=== PATIENT | male | born 1990 | race Caucasian/White ===

== ENCOUNTER 2019-02-11 19:07 | Emergency (ER) | payer BC, MEDICAID ==
[~2019-02-11] VITALS: Ht 177.8 cm; Wt 113.8 kg
[~2019-02-11 19:07] MED LIST: HYDR-843 PO
[2019-02-11 19:10] VITALS: Ht 177.8 cm; Wt 113.8 kg
[2019-02-11] MEDS ORDERED: LORAZEPAM 1 MG TAB PO ONE (21:30)
[2019-02-11 21:34] VITALS: BP 111/77; PULSE 80; RESP 18
--- NOTE | 2019-02-11 21:39 | ERD ---
ER Documentation Chief Complaint Chief Complaint SOB WITH CP; NO COUGHING; STATES FELT DIZZY WHILE DRIVING 1HR AGO HPI This is a 28-year-old male with past medical history of asthma is presenting to the emergency department complaining of an episode of shortness of breath which he experienced just prior to arrival while driving. 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 He has also had some tingling in his right arm and dizziness. Overall, he has improved. He took no medication for relief of symptoms. He denies any recent travel, recent surgery, past history of DVT or PE, hormone use, or hemoptysis. He adamantly denies any homicidal or suicidal ideation. No other symptoms reported at this time. ROS All systems reviewed and are negative except as per history of present illness. Medications Home Meds Active Scripts Hydroxyzine Hcl* (Hydroxyzine Hcl*) 25 Mg Tablet, 25 MG PO Q8H PRN for ANXIETY, #30 TAB Prov:RACHNA POP PA-C 02/11/19 Allergies Allergies: Coded Allergies: No Known Drug Allergies (Verified Allergy, Mild, 03/11/18) PMhx/Soc Medical and Surgical Hx: pt denies Surgical Hx History of Surgery: No Anesthesia Reaction: No Hx Neurological Disorder: Yes (MIGRAINES) Hx Respiratory Disorders: Yes (asthma) Hx Cardiac Disorders: No Hx Psychiatric Problems: No Hx Miscellaneous Medical Probl: No Hx Alcohol Use: No Hx Substance Use: No Hx Tobacco Use: No Smoking Status: Current every day smoker FmHx Family History: No diabetes Physical Exam Vitals Vital Signs Date Temp Pulse Resp B/P (MAP) Pulse Ox O2 O2 Flow FiO2 Time Delivery Rate 02/11/19 97.6 80 18 111/77 97 Room Air 21:34 (88) 02/11/19 98.1 104 19 128/91 98 19:10 (103) Physical Exam Const: No acute distress Head: Atraumatic Eyes: Normal Conjunctiva ENT: Normal External Ears, Nose and Mouth. Neck: Full range of motion. No meningismus. Resp: Clear to auscultation bilaterally Cardio: Regular rate and rhythm, no murmurs Abd: Soft, non tender, non distended. Normal bowel sounds Skin: No petechiae or rashes Back: No midline or flank tenderness Ext: No cyanosis, or edema Neur: Awake and alert Psych: anxious. Adamantly denies homicidal or suicidal ideation. Results 24 hrs Current Medications Medications Dose Sig/Jaxon Start Time Status Last (Trade) Ordered Route PRN Stop Time Admin Dose Reason Admin Lorazepam 1 mg ONCE ONCE 02/11/19 DC 02/11/19 (Ativan) PO 21:30 21:33 02/11/19 21:31 Procedures/MDM 28-year-old male presenting to the emergency department complaining of intermittent shortness of breath and anxiety. Chest x-ray and EKG were within normal limits. I doubt PE, aortic dissection, AAA, acute coronary syndrome, or other emergent process. Patient improved in the department with Ativan and he is stable for discharge and further follow-up with his primary care physician. He was advised to return for any new or concerning symptoms. Shared my medical decision making with the patient and he understands and agrees with the plan. PERC Criteria Assessment: Age > 50: No HR > 100: No 02 < 95%: No H/o DVT/PE: No Recent trauma/surgery: No Hemoptysis No Exogenous Estrogen: No Unilateral Leg swelling: No Pretest probability > 15%: No Less than 2% risk of PE. No further work up is necessary EKG: Interpreted by ED physician Rate/Rhythm: Normal Sinus Rhythm with a rate of 91 bpm. QRS, ST, T-waves: No changes consistent w/ acute ischemia Impression: No evidence of ischemia or arrhythmia Patient's blood pressure was elevated (>120/80) but appears stable without evidence of hypertension emergency or urgency. The patient is to follow-up and pursue outpatient monitoring and therapy with their primary care physician within 1 week and return immediately if they have any new, worsening, or concerning symptoms. Disclaimer: Inadvertent spelling and grammatical errors are likely due to EHR/dictation software use and do not reflect on the overall quality of patient care. Also, please note that the electronic time recorded on this note does not necessarily reflect the actual time of the patient encounter. Departure Diagnosis: Primary Impression: Anxiety as acute reaction to exceptional stress Condition: Fair Additional Instructions: Follow up with your PCP within the next 1-3 days for a repeat evaluation. If you require a referral to a specialist, your Primary Care Provider may be able to provide this for you. In most patient cases, a referral is not required. If you have further questions regarding this matter, please ask your Primary Care Provider. Return the the emergency department immediately if symptoms worsen or change. If you have any questions regarding medications, ask your pharmacist or us before you leave. If any adverse reactions, occur while taking your medications, discontinue the treatment and return to the emergency department immediately. If any new or worsening symptoms, uncontrolled fevers, or other unexplained symptoms occur, return to the emergency department immediately. Take your medications as directed, and complete the entire course of treatment. RACHNA POP PA-C Feb 11, 2019 21:39
== END 2019-02-11 22:39 | disposition home or self-care (01) ==
LOC: FTE 19:07
DX: F41.9 Anxiety disorder, unspecified (principal); J45.909 Unspecified asthma, uncomplicated; F17.210 Nicotine dependence, cigarettes, uncomplicated; F43.0 Acute stress reaction
CPT/HCPCS: 71046; 93005; Z7610